=== PATIENT | male | born 1985 | race Caucasian/White ===

== ENCOUNTER 2017-06-13 16:28 | Emergency (ER) | payer SELFPAY ==
[~2017-06-13] VITALS: Ht 175.3 cm; Wt 99.8 kg
[~2017-06-13 16:28] MED LIST: CLIN300C8 PO; HYDR-971 PO; LISI-338 PO
[2017-06-13] MEDS ORDERED: LIDOCAINE 2%/EPI 1:100,000 20 ML VIAL. IJ ONE (17:00)
[2017-06-13] MEDS ORDERED: fentaNYL PF 100 MCG/2 ML VIAL IV ONE (17:00)
[2017-06-13] MEDS ORDERED: IV NORMAL SALINE 500ML 500 ML IV ONE (17:00)
[2017-06-13 17:45] VITALS: BP 158/100
[2017-06-13] MEDS ORDERED: HYDR-971 PO (17:46)
[2017-06-13] MEDS ORDERED: SULF1TAB24 PO (17:46)
--- NOTE | 2017-06-13 17:46 | PHYS DOC ---
Past History Past Medical History: Asthma, Hypertension Past Surgical History: No Surgical History Alcohol Use: None Drug Use: None Adult General Chief Complaint Chief Complaint: ABSCESS HPI HPI Patient is a 32-year-old male who presents with a several day history of an abscess on his right upper medial thigh. Patient states he squeezed "a lot" of pus out of it this morning and it already feels better but he thinks there is more in there. Patient had a abscess in this area once in the past and he had to go to the operating room and states that they had to Tylenol back and it was a large extensive abscess that he had the pack at home for quite some time. That did eventually heal up without any incident. Patient has been well otherwise without fever or chills. He has no chronic medical problems. Review of Systems Review of Systems Constitutional: Denies fever or chills [] GI: Denies nausea or vomiting Integument: Denies abscess elsewhere Current Medications Current Medications Current Medications Medications (Trade) Dose Ordered Sig/Suri Start Time Stop Time Status Last Admin Dose Admin Fentanyl Citrate (Fentanyl 2ml Vial) 100 mcg 1X ONCE 06/13/17 17:00 06/13/17 17:01 DC 06/13/17 17:19 100 MCG Lidocaine/ Epinephrine (Xylocaine 2%-Epi 1:100,000) 20 ml 1X ONCE 06/13/17 17:00 06/13/17 17:01 DC 06/13/17 17:19 20 ML Sodium Chloride 500 ml @ 30 mls/hr 1X ONCE 06/13/17 17:00 06/14/17 09:39 06/13/17 17:18 30 MLS/HR Allergies Allergies Allergies Coded Allergies Type Severity Reaction Last Updated Verified No Known Drug Allergies 07/04/16 No Physical Exam Physical Exam Constitutional: Well developed, well nourished, no acute distress, non-toxic appearance. Alert, mentating normally. HENT: Normocephalic, atraumatic, bilateral external ears normal, nose normal. [ ] Eyes: conjunctiva normal, no discharge. [] Neck: Normal range of motion, no stridor. [] Skin: Warm, dry, no erythema, no rash. On the right, proximal, medial thigh, there is an abscess just distal to the inguinal crease that measures about 1.5 x 4 cm in the area of fluctuance. There is evidence of some recent drainage from one end of the abscess. There is significant surrounding cellulitis approximately 8 x 8 cm. Skin is normal beyond that. Extremities: no cyanosis, no clubbing, ROM intact, no edema. Neurologic: Alert and oriented X 3, normal motor function, normal sensory function, no focal deficits noted. [] Current Patient Data Vital Signs Vital Signs Date Time Temp Pulse Resp B/P (MAP) Pulse Ox O2 Delivery O2 Flow Rate FiO2 06/13/17 17:19 20 95 Room Air EKG EKG [] Radiology/Procedures Radiology/Procedures Procedure: Incision and drainage of right proximal medial thigh abscess The area was prepped with Betadine. The area around the abscess was infiltrated with 2% lidocaine with epi to block the field. An 18-gauge needle was used to aspirate the abscess. 3-4 mL of purulent liquid was obtained. A scalpel was used to make a 3 cm incision down the length of the abscess. The abscess cavity was fully opened. The abscess cavity was not deep and was easily opened by one incision. A small amount of remaining purulent material was evacuated by wiping with gauze and saline. The abscess cavity appears clean. The incised area, due to skin tension, wants to lay open and due to the shallow depth and the wide opening, I don't believe packing will stay in or will be helpful. It was dressed with an absorbent dressing. Patient tolerated the procedure well. [] Course & Med Decision Making Course & Med Decision Making Pertinent Labs and Imaging studies reviewed. (See chart for details) 32-year-old male presents with an abscess to the right proximal thigh which was drained by me. He was given IV fentanyl for pain prior to the procedure and was also given first dose of antibiotics here in the ED. The patient is nontoxic and will tolerate outpatient antibiotics. See instructions for plan. [] Dragon Disclaimer Dragon Disclaimer This chart was dictated in whole or in part using Voice Recognition software in a busy, high-work load, and often noisy Emergency Department environment. It may contain unintended and wholly unrecognized errors or omissions. Departure Departure: Impression: Primary Impression: Abscess of right thigh Disposition: HOME, SELF-CARE Condition: IMPROVED Referrals: PCP,NO (PCP) Patient Instructions: Abscess, Care After Additional Instructions: As we discussed, we drained quite a bit of pus out in the emergency department. There will be bleeding and drainage from the area for several days. Wear an absorbent dressing to cover. Change as needed when it becomes soaked. At least 2-3 times a day, sit in a bathtub of hot soapy water, swish water around and clean gently with a washcloth, dry well and re-bandage with an absorbent dressing. I did not pack the area because it is not very deep and I don't think in there, and the purpose of packing is to keep it open, and your abscess wants to stay open by itself already. When you clean it, swish water into the abscess to keep it clean and keep it from closing up. Call Thursday for follow-up in Dr. Zee's office for recheck and also to discuss treatment of recurrent abscesses. Bactrim, antibiotic, for infection. Hydrocodone for pain as needed, this is an opiate, it will cause sedation and constipation, do not take while driving. Scripts Hydrocodone Bit/Acetaminophen (NORCO 5-325 TABLET) 1 Each Tablet 1-2 TAB PO Q4-6HRS, #15 TAB Prov: JOSE YADAV MD 06/13/17 Sulfamethoxazole/Trimethoprim (BACTRIM DS TABLET) 1 Each Tablet 1 TAB PO BID for abscess, #20 TAB Prov: JOSE YADAV MD 06/13/17 JOSE YADAV MD Jun 13, 2017 17:46
[2017-06-13] MEDS ORDERED: SMZ/TMP 800/160MG TABLET. PO ONE (18:00)
== END 2017-06-13 18:00 | disposition home or self-care (01) ==
LOC: ER 16:28
DX: L02.415 Cutaneous abscess of right lower limb (principal); I10 Essential (primary) hypertension; J45.909 Unspecified asthma, uncomplicated
CPT/HCPCS: 10060; 96361; 96374; 99284; J3010; J7040

== ENCOUNTER 2018-06-20 19:45 | Emergency (ER) | payer SELFPAY ==
[~2018-06-20] VITALS: Ht 175.3 cm; Wt 95.3 kg
[~2018-06-20 19:45] MED LIST changes: +SULF1TAB24 PO
--- NOTE | 2018-06-20 20:55 | PHYS DOC ---
Past History Past Medical History: Abscess, Asthma, Hypertension Past Surgical History: No Surgical History Alcohol Use: None Drug Use: None Adult General Chief Complaint Chief Complaint: DIZZY/LIGHT HEADED HPI HPI 33-year-old male presents with dizziness that started 3 hours ago. He describes the dizziness as the room spinning around him. It is worse with rapid positional change. He has had episodes like this in the past but they do not last this long. He has noticed that changes in position or standing up too fast seem to exacerbate it. Came in tonight due to the duration of this episode and concern it was something more serious. The patient does drink alcohol daily about 1 pint of whiskey a day. His last drink was 2 AM this morning. She had one episode of vomiting. He continues to have mild nausea. He denies any trauma or head injury. He is not previously diagnosed with anything other hypertension. He is not taking his hypertension medicines. Review of Systems Review of Systems Constitutional: Denies fever or chills [] Eyes: Denies change in visual acuity, redness, or eye pain [] HENT: Denies nasal congestion or sore throat [] Respiratory: Denies cough or shortness of breath [] Cardiovascular: No additional information not addressed in HPI [] GI: Denies abdominal pain, nausea, vomiting, bloody stools or diarrhea [] : Denies dysuria or hematuria [] Musculoskeletal: Denies back pain or joint pain [] Integument: Denies rash or skin lesions [] Neurologic: Denies headache, focal weakness or sensory changes. Has dizziness[ ] Endocrine: Denies polyuria or polydipsia [] All other systems were reviewed and found to be within normal limits, except as documented in this note. Current Medications Current Medications Current Medications Medications (Trade) Dose Ordered Sig/[facility] Start Time Stop Time Status Last Admin Dose Admin Ondansetron HCl (Zofran) 4 mg 1X ONCE 06/20/18 21:00 06/20/18 21:01 Sodium Chloride 1,000 ml @ 1,000 mls/hr 1X ONCE 06/20/18 21:00 06/20/18 21:59 Allergies Allergies Allergies Coded Allergies Type Severity Reaction Last Updated Verified No Known Drug Allergies 07/04/16 No Physical Exam Physical Exam Constitutional: Well developed, well nourished, no acute distress, non-toxic appearance. [] HENT: Normocephalic, atraumatic, bilateral external ears normal, oropharynx moist, no oral exudates, nose normal. [] Eyes: PERRLA, EOMI, conjunctiva normal, no discharge. [] Neck: Normal range of motion, no tenderness, supple, no stridor. [] Cardiovascular:Heart rate regular rhythm, no murmur [] Lungs & Thorax: Bilateral breath sounds clear to auscultation [] Abdomen: Bowel sounds normal, soft, no tenderness, no masses, no pulsatile masses. [] Skin: Warm, dry, no erythema, no rash. [] Back: No tenderness, no CVA tenderness. [] Extremities: No tenderness, no cyanosis, no clubbing, ROM intact, no edema. [] Neurologic: Alert and oriented X 3, normal motor function, normal sensory function, no focal deficits noted. Dizziness worsened by rapid head movement.[] Psychologic: Affect normal, judgement normal, mood normal. [] Current Patient Data Vital Signs Vital Signs Date Time Temp Pulse Resp B/P (MAP) Pulse Ox O2 Delivery O2 Flow Rate FiO2 06/20/18 19:55 98.2 60 22 100 Room Air EKG EKG [] Radiology/Procedures Radiology/Procedures [] Course & Med Decision Making Course & Med Decision Making Pertinent Labs and Imaging studies reviewed. (See chart for details) The patient's labs show overall hemoconcentration. He is likely dehydrated. After a liter of normal saline and meclizine, the patient stated his dizziness had improved and he is feeling much better. I recommended that he follow-up with his PCP to discuss future management of these symptoms if necessary as well as getting back on blood pressure medication. I also expressed to patient that he is drinking more than he should. He is stable for discharge at this time. [] Dragon Disclaimer Dragon Disclaimer This electronic medical record was generated, in whole or in part, using a voice recognition dictation system. Departure Departure: Referrals: PCP,KRYSTYNA (PCP) LEROY MALDONADO DO Jun 20, 2018 20:55
[2018-06-20] MEDS ORDERED: ONDANSETRON PF 4 MG/2 ML VIAL. IV ONE (21:00)
[2018-06-20] MEDS ORDERED: IV NORMAL SALINE 1,000ML 1,000 ML IV ONE (21:00)
[2018-06-20 21:12] LABS: BASO % 0 % (0-3); EOS # 0.1 x10^3/uL (0.0-0.7); EOS % 1 % (0-3); HEMATOCRIT 54.1 % (39.0-53.0); HEMOGLOBIN 18.4 g/dL (13.0-17.5); LYMPH # 1.3 x10^3/uL (1.0-4.8); LYMPH % 11 % (24-48); MEAN CORPUSCULAR HEMOGLOBIN 32 pg (25-35); MEAN CORPUSCULAR HGB CONC 34 g/dL (31-37); MEAN CORPUSCULAR VOLUME 95 fL (79-100); MONO # 0.9 x10^3/uL (0.0-1.1); MONO % 8 % (0-9); NEUT # 9.2 x10^3uL (1.8-7.7); NEUT % 80 % (31-73); PLATELET COUNT 188 x10^3/uL (140-400); RED BLOOD COUNT 5.71 x10^6/uL (4.30-5.70); RED CELL DISTRIBUTION WIDTH 13.7 % (11.5-14.5); WHITE BLOOD COUNT 11.5 x10^3/uL (4.0-11.0)
[2018-06-20 21:24] LABS: ALBUMIN 3.7 g/dL (3.4-5.0); ALBUMIN/GLOBULIN RATIO 1.1 (1.0-1.7); CALCIUM 9.5 mg/dL (8.5-10.1); CREATININE 1.1 mg/dL (0.7-1.3); GFR 78.1; POTASSIUM 4.5 mmol/L (3.5-5.1); TOTAL BILIRUBIN 0.6 mg/dL (0.2-1.0); TOTAL PROTEIN 7.2 g/dL (6.4-8.2)
[2018-06-20] MEDS ORDERED: MECLIZINE 12.5 MG TABLET. PO PRN (22:30)
[2018-06-20 22:46] VITALS: BP 136/104
== END 2018-06-20 22:53 | disposition home or self-care (01) ==
LOC: ER 19:45
DX: R42 Dizziness and giddiness (principal); R11.2 Nausea with vomiting, unspecified; J45.909 Unspecified asthma, uncomplicated; I10 Essential (primary) hypertension
CPT/HCPCS: 36415; 80053; 85025; 96361; 96374; 99284; J2405; J7030

== ENCOUNTER 2019-05-27 16:19 | Emergency (ER) | payer SELFPAY ==
[~2019-05-27 16:19] MED LIST changes: +HYDR-3165 PO; -HYDR-971 PO
[2019-05-27 16:40] VITALS: BP 195/127
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
[2019-05-27] MEDS ORDERED: TRAM50TA PO (17:11)
[2019-05-27] MEDS ORDERED: METH4TAB2 PO (17:11)
== END 2019-05-27 17:17 | disposition home or self-care (01) ==
LOC: ER 16:19
DX: G89.29 Other chronic pain (principal); M25.512 Pain in left shoulder; M19.012 Primary osteoarthritis, left shoulder; R20.2 Paresthesia of skin; I10 Essential (primary) hypertension; F10.20 Alcohol dependence, uncomplicated; Y90.9 Presence of alcohol in blood, level not specified
CPT/HCPCS: 73030; 99284

== ENCOUNTER 2020-07-07 17:10 | Emergency (ER) | payer SELFPAY ==
[~2020-07-07] VITALS: Ht 175.3 cm; Wt 104.9 kg
[~2020-07-07 17:10] MED LIST changes: +METH4TAB2 PO; +TRAM50TA PO
--- NOTE | 2020-07-07 17:48 | PHYS DOC ---
Past History Past Medical History: Asthma, Hypertension Past Surgical History: No Surgical History Alcohol Use: Occasionally Drug Use: None General Adult EDM: Chief Complaint: ALLERGIC REACTION HPI: HPI: "..I got a wasp sting yesterday on my Lt. hand... I was going up the ladder...and a black wasp got me myring and middle finger.. I cleaned it up... and put baking soda on it... but this happen yesterday about 330 pm.. and now whole lt hand is swollen... and got redness in my fore arm... I ve not been this allergic to stings before...." Patient is a 35 year old male who presents with above hx and complaints of increasing pain edema erythema in left hand since yesterday. Patient denies any previous history of anaphylaxis or severe reaction to bee or wasp stings. Patient states his tetanus 8. No recent travel. No specific ill contacts. Distal vascular intact. Does have obvious swelling of left hand. Patient denies any history of travel or specific ill contacts. No history of immunosuppression. Review of Systems: Review of Systems: Constitutional: Denies fever or chills Eyes: Denies change in visual acuity HENT: Denies nasal congestion or sore throat Respiratory: Denies cough or shortness of breath Cardiovascular: Denies chest pain or edema GI: Denies abdominal pain, nausea, vomiting, bloody stools or diarrhea : Denies dysuria Musculoskeletal: Denies back pain or joint pain Integument: Complains of water staining and localized reaction Neurologic: Denies headache, focal weakness or sensory changes Endocrine: Denies polyuria or polydipsia Lymphatic: Denies swollen glands Psychiatric: Denies depression or anxiety Heart Score: Risk Factors: Risk Factors: DM, Current or recent (<one month) smoker, HTN, HLP, family history of CAD, obesity. Risk Scores: Score 0 - 3: 2.5% MACE over next 6 weeks - Discharge Home Score 4 - 6: 20.3% MACE over next 6 weeks - Admit for Clinical Observation Score 7 - 10: 72.7% MACE over next 6 weeks - Early Invasive Strategies Family History: Family History: Noncontributory Current Medications: Current Meds: See nursing for home meds Allergies: Allergies: Allergies Coded Allergies Type Severity Reaction Last Updated Verified No Known Drug Allergies 07/04/16 No Physical Exam: PE: Constitutional: Well developed, well nourished, no acute distress, non-toxic appearance. [] HENT: Normocephalic, atraumatic, bilateral external ears normal, oropharynx moist, no oral exudates, nose normal. [] Eyes: PERRLA, EOMI, conjunctiva normal, no discharge. [] Neck: Normal range of motion, no tenderness, supple, no stridor. [] Cardiovascular:Heart rate regular rhythm, no murmur [] Lungs & Thorax: Bilateral breath sounds equal apex on auscultation [] Abdomen: Bowel sounds normal, soft, no tenderness, no masses, no pulsatile masses. [] Skin: Warm, dry, no erythema, no rash. [] Back: No tenderness, no CVA tenderness. [] Extremities: No tenderness, no cyanosis, no clubbing, ROM intact, no edema. [Hip findings and left hand as per HPI] Neurologic: Alert and oriented X 3, normal motor function, normal sensory function, no focal deficits noted. [] Psychologic: Affect anxious, judgement normal, mood normal. [] Current Patient Data: Vital Signs: Vital Signs Date Time Temp Pulse Resp B/P (MAP) Pulse Ox O2 Delivery O2 Flow Rate FiO2 07/07/20 17:16 97.6 99 16 193/148 (163) 98 Room Air EKG: EKG: [] Radiology/Procedures: Radiology/Procedures: [] Course & Med Decision Making: Course & Med Decision Making Pertinent Labs and Imaging studies reviewed. (See chart for details) Please continue close monitoring of the site. Patient to soak hand Epsom salts with salt water 4 times a day afterwards apply Polysporin and rub into area of erythema. Patient to follow-up primary care. Patient take Tylenol and ibuprofen for pain. Patient may take Benadryl 25 to 50 mg 4 times a day for itching and allergic reaction. Patient consider taking Pepcid 20 mg a day for next 5 days. Patient to carry an EpiPen that is available if he becomes anaphylactic with a another insect sting. Must follow-up primary care. Impression; 1. Severe localized reaction to a wasp sting-left hand [] Dragon Disclaimer: Dragon Disclaimer: This electronic medical record was generated, in whole or in part, using a voice recognition dictation system. Departure Departure: Disposition: 01 HOME/RESIDENCE PRIOR TO ADM Condition: STABLE Referrals: PCP,NO (PCP) Scripts Epinephrine (EPIPEN 2-IAN) 0.3 Mg/0.3 Ml Auto.injct 0.3 MG IJ 1X for severe allergic reaction due , #2 SYR Prov: SAMUEL DAI MD 07/07/20 Justification of Admission: Justification of Admission: Justification of Admission Dx: N/A Dragon Disclaimer This chart was dictated in whole or in part using Voice Recognition software in a busy, high-work load, and often noisy Emergency Department environment. It may contain unintended and wholly unrecognized errors or omissions. SAMUEL DAI MD Jul 07, 2020 17:48
[2020-07-07 18:02] VITALS: BP 194/140
[2020-07-07] MEDS ORDERED: EPIN0.3A4 IJ (18:53)
[2020-07-07] MEDS ORDERED: methylPREDNISolone ACETATE 40 MG/ML VIAL. IM ONE (19:00)
[2020-07-07] MEDS ORDERED: FAMOTIDINE 20 MG TABLET PO ONE (19:00)
[2020-07-07] MEDS ORDERED: TETANUS AND DIPHTHERIA TOX/PF 0.5 ML VIAL. VAX IM ONE (19:00)
[2020-07-07] MEDS ORDERED: diphenhydrAMINE HCL 25 MG CAPSULE PO ONE (19:00)
[2020-07-07] MEDS ORDERED: DIPH,PERTUSS(ACELL),TET VAC/PF 0.5 ML SYRINGE. VAX IM ONE (19:15)
== END 2020-07-07 19:14 | disposition home or self-care (01) ==
LOC: ER 17:10
DX: T63.461A Toxic effect of venom of wasps, accidental (unintentional), initial encounter (principal); J45.909 Unspecified asthma, uncomplicated; I10 Essential (primary) hypertension; Y92.89 Other specified places as the place of occurrence of the external cause
CPT/HCPCS: 90471; 90715; 96372; 99284; J1030; Q0163

== ENCOUNTER 2020-09-09 18:40 | Emergency (ER) | payer SELFPAY ==
[~2020-09-09] VITALS: Ht 175.3 cm; Wt 109.0 kg
[~2020-09-09 18:40] MED LIST changes: +EPIN0.3A4 IJ
[2020-09-09] MEDS ORDERED: SULF1TAB24 PO (19:34)
--- NOTE | 2020-09-09 19:35 | PHYS DOC ---
Past History Past Medical History: Asthma, Hypertension Past Surgical History: No Surgical History Alcohol Use: Occasionally Drug Use: None General Adult EDM: Chief Complaint: CELLULITIS HPI: HPI: 35-year-old male presents with concern for cellulitis and abscess of the left upper thigh. The patient has had recurrent abscesses in this area several times. He is even had surgery 1 time to try to eliminate a tract. Patient states that this grew up just today. He knows better than 2 wait multiple days because it just gets a lot worse. He tried to pop it but only got a small amount of fluid out of it. He does not know if he has ever had MRSA. He was hospitalized when he had the surgical excision. Patient does not have any medication allergies. He denies fever or chills at home. Review of Systems: Review of Systems: Constitutional: Denies fever or chills Eyes: Denies change in visual acuity HENT: Denies nasal congestion or sore throat Respiratory: Denies cough or shortness of breath Cardiovascular: Denies chest pain or edema GI: Denies abdominal pain, nausea, vomiting, bloody stools or diarrhea : Denies dysuria Musculoskeletal: Denies back pain or joint pain Integument: Abscess left upper thigh Neurologic: Denies headache, focal weakness or sensory changes Endocrine: Denies polyuria or polydipsia Lymphatic: Denies swollen glands Psychiatric: Denies depression or anxiety Allergies: Allergies: Allergies Coded Allergies Type Severity Reaction Last Updated Verified No Known Drug Allergies 07/04/16 No Physical Exam: PE: Constitutional: Well developed, well nourished, no acute distress, non-toxic appearance. [] HENT: Normocephalic, atraumatic, bilateral external ears normal, oropharynx moist, no oral exudates, nose normal. [] Eyes: PERRLA, EOMI, conjunctiva normal, no discharge. [] Neck: Normal range of motion, no tenderness, supple, no stridor. [] Cardiovascular:Heart rate regular rhythm, no murmur [] Lungs & Thorax: Bilateral breath sounds clear to auscultation [] Abdomen: Bowel sounds normal, soft, no tenderness, no masses, no pulsatile masses. [] Skin: 2 cm x 3 cm abscess of the left upper thigh with central fluctuance. Evidence of previous incision and drain with scarring in the same area. [] Back: No tenderness, no CVA tenderness. [] Extremities: No tenderness, no cyanosis, no clubbing, ROM intact, no edema. [] Neurologic: Alert and oriented X 3, normal motor function, normal sensory function, no focal deficits noted. [] Psychologic: Affect normal, judgement normal, mood normal. [] Current Patient Data: Vital Signs: Vital Signs Date Time Temp Pulse Resp B/P (MAP) Pulse Ox O2 Delivery O2 Flow Rate FiO2 //20 18:40 98.0 99 22 194/140 (158) 100 EKG: EKG: [] Radiology/Procedures: Radiology/Procedures: [] Heart Score: Risk Factors: Risk Factors: DM, Current or recent (<one month) smoker, HTN, HLP, family history of CAD, obesity. Risk Scores: Score 0 - 3: 2.5% MACE over next 6 weeks - Discharge Home Score 4 - 6: 20.3% MACE over next 6 weeks - Admit for Clinical Observation Score 7 - 10: 72.7% MACE over next 6 weeks - Early Invasive Strategies Course & Med Decision Making: Course & Med Decision Making Pertinent Labs and Imaging studies reviewed. (See chart for details) I performed an incision and drainage on the patient's abscess. See note below for more details. A wound culture was sent. I will place patient on Bactrim DS and start him with a double dose here in the emergency room prior to discharge. He is stable for discharge at this time. [] Dragon Disclaimer: Dragon Disclaimer: This electronic medical record was generated, in whole or in part, using a voice recognition dictation system. Incision and Drainage Indication: Abscess of the left upper thigh. Procedure: The patient was positioned appropriately and the skin over the i ncision site was cleaned with alcohol. 1% lidocaine with epinephrine was used. A total of 3 cc. I then made a 5 mm incision with a #11 blade at the center of the abscess. There was immediate purulent drainage. I broke up multiple loculations with sterile Q-tip. There was continued purulent drainage. Wound culture was sent. A soft absorbent gauze dressing was applied over the wound. No packing was used. The patient tolerated the procedure well. Complications: None Departure Departure: Impression: Primary Impression: Cellulitis Qualified Codes: L03.116 - Cellulitis of left lower limb Disposition: 01 DC HOME SELF CARE/HOMELESS Condition: STABLE Referrals: PCP,NO (PCP) Patient Instructions: Abscess, [id number] Scripts Sulfamethoxazole/Trimethoprim (BACTRIM DS TABLET) 1 Each Tablet 1 TAB PO BID for abscess for 7 Days, #14 TAB 0 Refills Prov: LEROY MALDONADO DO 09/09/20 LEROY MALDONADO DO Sep 09, 2020 19:35
[2020-09-09] MEDS ORDERED: SMZ/TMP 800/160MG TABLET. PO ONE (19:45)
[2020-09-09 19:50] VITALS: BP 195/146
== END 2020-09-09 19:50 | disposition home or self-care (01) ==
LOC: ER 18:40
DX: L03.116 Cellulitis of left lower limb (principal); L02.416 Cutaneous abscess of left lower limb; J45.909 Unspecified asthma, uncomplicated; I10 Essential (primary) hypertension
CPT/HCPCS: 10060; 87070; 99283

== ENCOUNTER → 2021-12-20 | Outpatient (CLI) | payer MEDICAID ==
[~2021-12-20] MED LIST changes: +CLIN-95 PO; -CLIN300C8 PO; -LISI-338 PO; +LISI5TAB15 PO
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
== END ==
LOC: RAD 09:29
PROVIDERS: ATTEND Family Medicine
DX: S62.011A Displaced fracture of distal pole of navicular [scaphoid] bone of right wrist, initial encounter for closed fracture (principal); M87.88 Other osteonecrosis, other site; X58.XXXA Exposure to other specified factors, initial encounter; Y93.89 Activity, other specified; Y92.89 Other specified places as the place of occurrence of the external cause; Y99.8 Other external cause status
CPT/HCPCS: 73110